=== PATIENT | male | born 1955 | race Caucasian/White ===

== ENCOUNTER 2021-01-26 11:49 | Emergency (ER) | payer MEDICAID, MEDICARE ==
[~2021-01-26] VITALS: Ht 167.6 cm; Wt 73.0 kg
[~2021-01-26 11:49] MED LIST: ALLO300T2 PO; AMLO5TAB4 PO; ASPI-1497 PO; ATOR40TA70 PO; CYCL5TAB PO; FAMO40TA70 PO; FURO20TA4 PO; GLIM4TAB36 PO; LISI40TA13 PO; METF-414 PO; SIME125C81 PO; SITA100T11 PO
[2021-01-26 17:14] LABS: BASOPHILS % 0.9 % (0.0-2.0); EOSINOPHILS % 1.1 % (0.0-5.0); HEMATOCRIT. 33.3 % (42.0-52.0); HEMOGLOBIN. 10.7 g/dL (14.0-18.0); LYMPHOCYTES % 12.1 % (20.0-50.0); MEAN CORPUSCULAR HEMOGLOBIN 25.8 pg (28.0-32.0); MEAN CORPUSCULAR VOLUME 80.4 fL (80.0-94.0); MEAN PLATELET VOLUME 9.6 fl (7.4-10.4); MONOCYTES % 8.9 % (2.0-8.0); PLATELET 260 x1000/uL (130-400); RED BLOOD CELL COUNT 4.15 mill/uL (4.7-6.1)
[2021-01-26 17:15] LABS: CHLORIDE 105 mEq/L (98-107)
[2021-01-26] MEDS ORDERED: FUROSEMIDE 40MG/4ML VIAL IVP ONE (18:30)
[2021-01-26 21:25] VITALS: BP 139/79
== END 2021-01-26 21:23 | disposition left against medical advice (07) ==
LOC: EDBD 12:00 → EDUNIT# 12:00 → ER 12:00
DX: I11.0 Hypertensive heart disease with heart failure (principal); I50.9 Heart failure, unspecified; E11.9 Type 2 diabetes mellitus without complications
CPT/HCPCS: 36415; 71045; 80053; 83880; 84484; 85025; 93005; 96374; 99285; J1940